=== PATIENT | female | born 1945 | race Caucasian/White ===

== ENCOUNTER 2016-09-14 05:37 | Inpatient (IN) ==
[2016-09-05 14:20] LABS: Basophils # 0.1 10*3/uL (0.0-0.2); Basophils % 0.4 % (0.0-0.8); Eosinophils # 0.4 10*3/uL (0.0-0.87); Eosinophils % 2.7 % (0.00-10.9); Hematocrit 40.1 VOL% (35.7-47.0); Hemoglobin 13.3 GM/DL (12.0-16.0); Immature Granulocytes % 0.4 %; Immature Granulocytes Absolute 0.05 #; Lymphocytes # 1.9 10*3/uL (1.4-4.0); Lymphocytes % 14.4 % (21.3-54.2); Mean Corpuscular HGB Conc 33.2 GM/DL (32-36); Mean Corpuscular Hemoglobin 29 PG (27-34); Mean Corpuscular Volume 87.9 FL (87-102); Mean Platelet Volume 13.3 FL (9.6-12.0); Monocytes # 0.6 10*3/uL (0.11-0.8); Monocytes % 4.8 % (1.7-12.7); Neutrophils # 10.3 10*3/uL (1.4-7.4); Neutrophils % 77.3 % (38.7-73.9); Platelet Count 171 T/CUMM (130-400); Red Blood Count 4.56 MC/CUMM (3.8-5.5); Red Cell Distribution Width 13.6 % (9.3-17.3); White Blood Count 13.4 T/CUMM (4-12)
[2016-09-05 14:30] LABS: Apearance,Urine Slightly Hazy (Clear); Blood, Urine Negative (Negative); Glucose,Urine (UA) Negative (Negative); Hyaline Casts,Urine 15 /LPF (0-3); Ketones,Urine 5 mg/dL (Negative); Nitrite,Urine Negative (Negative); Protein,Urine 30 MG/DL; RBC,Urine 2 /HPF (0-4); Squamous Epithelial Cell,Urine Occasional /HPF (0-10); Urine Color Amber (Yellow); Urine Specific Gravity 1.031 (1.001-1.035); WBC,Urine 5 /HPF (0-6)
[2016-09-05 14:33] LABS: Bilirubin,Urine Small mg/dL (Negative)
[2016-09-05 14:41] LABS: PT Patient Result 10.6 SECS; Partial Thromboplastin Time 27.9 SECS (0-40)
[2016-09-05 14:44] LABS: Albumin 3.3 G/DL (3.4-5.0); Bilirubin,Total 0.5 MG/DL (0.2-1.0); Calcium 9.6 MG/DL (8.5-10.1); Osmolality,Calculated 292.8 MOS/KG (273-304); Potassium 3.5 MMOL/L (3.5-5.1); Total Protein 6.3 G/DL (6.4-8.3)
--- NOTE | 2016-09-05 14:50 | XRay Report ---
XR chest 2V Indication: Preop evaluation Comparison: Chest x-ray dated June 22, 2016 Technique: Frontal and lateral views of the chest Findings: Mild cardiomegaly. Chronic change of the lungs without focal consolidation, pleural effusion, or pneumothorax. Osseous and surrounding soft tissue structures appear grossly unchanged. Osteopenia with accentuation of normal thoracic kyphosis. IMPRESSION: Stable chest x-ray. Mild cardiomegaly without cristopher pulmonary edema. PROCEDURE INTERPRETED AT [facility] [place] DEPARTMENT OF RADIOLOGY Final Report Signed by: Dr David Cameron
--- NOTE | 2016-09-05 14:53 | EKG Report ---
Stationary ECG Study [facility] Test Date: 09/05/2016 2:53:32 PM Pat Name: JENIFFER TAVERA Department: Room: Gender: F Position Classifier: DAVID 09-14-16 : 1945 Requested by: Butch Hines Order Number: [id number] Reading MD: CARL BURRIS Intervals [place] Rate: 55 P: 48 IA: 188 QRS: 42 QRSD: 113 T: -52 QT: 448 QTc: 437 Interpretive Statements SINUS RHYTHM MODERATE INTRAVENTRICULAR CONDUCTION DELAY MODERATE T-WAVE ABNORMALITY, CONSIDER LATERAL ISCHEMIA MODERATE T-WAVE ABNORMALITY, CONSIDER INFERIOR ISCHEMIA Electronically Signed On 09-09-16 21:48:13 CDT by CARL BURRIS [email or web address]
--- NOTE | 2016-09-14 06:52 | History and Physical Update ---
History and Physical Update - History and Physical H&P was reviewed, the patient examined and there: are no changes in the patients condition since last H&P was completed. - Dictation Physical: refer to scanned H&P
[2016-09-14] MEDS ORDERED: ALBUTEROL 2.5 MG/3 ML NEB RESP TX ONE (07:35)
[2016-09-14] MEDS ORDERED: DIAZEPAM 5 MG TABLET PO ONE (07:35)
[2016-09-14] MEDS ORDERED: PANTOPRAZOLE 40 MG TABLET PO ONE ×2 (07:35→08:14)
[2016-09-14] MEDS ORDERED: VANCOMYCIN INJ 1,000 MG in SODIUM CHLORIDE 0.9% 250 ML IV ONE (08:00)
[2016-09-14] MEDS ORDERED: LACTATED RINGERS 1,000 ML IV SCH (08:00)
[2016-09-14] MEDS ORDERED: VANCOMYCIN 1,000 MG VIAL ONE (08:14)
[2016-09-14] MEDS ORDERED: SODIUM CHLORIDE 0.9% 100 ML IV ONE (08:14)
[2016-09-14] MEDS ORDERED: ceFAZolin 1,000 MG VIAL ONE (08:14)
[2016-09-14] MEDS ORDERED: DIAZEPAM 5 MG TABLET ONE (08:14)
[2016-09-14] MEDS ORDERED: EPINEPHrine 1 MG/ML VIAL ONE (09:25)
[2016-09-14] MEDS ORDERED: methylPREDNISolone SOD SUC 125 MG/2 ML VIAL ONE (09:25)
[2016-09-14] MEDS ORDERED: MORPHINE 10 MG/1 ML VIAL ONE (09:25)
[2016-09-14] MEDS ORDERED: BUPIVACAINE 0.5% 50 ML VIAL ONE (09:25)
[2016-09-14] MEDS ORDERED: LIDOCAINE 2% 5 ML VIAL ONE (09:55)
[2016-09-14] MEDS ORDERED: PROPOFOL 200 MG/20 ML VIAL IV ONE (09:55)
[2016-09-14] MEDS ORDERED: TRANEXAMIC ACID 1,000 MG/10 ML VIAL IV ONE (11:05)
[2016-09-14] MEDS ORDERED: MORPHINE 10 MG/10 ML VIAL ONE (11:30)
[2016-09-14] MEDS ORDERED: MIDAZOLAM 2 MG/2 ML VIAL ONE (11:30)
[2016-09-14] MEDS ORDERED: KETAMINE 500 MG/10 ML VIAL ONE (11:30)
[2016-09-14] MEDS ORDERED: CETIRIZINE 10 MG TABLET PO PRN (12:20)
[2016-09-14] MEDS ORDERED: diphenhydrAMINE CAP 25 MG CAPSULE PO PRN (12:21)
[2016-09-14] MEDS ORDERED: ONDANSETRON 4 MG/2 ML VIAL IV PRN (12:21)
[2016-09-14] MEDS ORDERED: MAGNESIUM HYDROXIDE SUSP 30 ML UDCUP PO PRN (12:21)
[2016-09-14] MEDS ORDERED: oxyCODONE/ACETAMINOPHEN 5-325 MG TABLET PO PRN (12:21)
[2016-09-14 12:28] LABS: Apearance,Urine CLEAR (Clear); Bacteria,Urine Occasional /HPF (Few); Bilirubin,Urine Negative (Negative); Blood, Urine Negative (Negative); Glucose,Urine (UA) Negative (Negative); Ketones,Urine Negative (Negative); Nitrite,Urine Negative (Negative); Protein,Urine Negative; RBC,Urine <1 /HPF (0-4); Squamous Epithelial Cell,Urine Occasional /HPF (0-10); Urine Color Yellow (Yellow); Urine Specific Gravity 1.012 (1.001-1.035); Urine Urobilinogen < 2.0 EU/DL (0.2-1.0); WBC,Urine <1 /HPF (0-6)
[2016-09-14] MEDS ORDERED: hydrOXYzine HCL 25 MG TABLET PO PRN (12:30)
--- NOTE | 2016-09-14 12:47 | Anesthesia Post-Op ---
Anesthesia Post OP - Post Ansesthetic Evaluation Patient seen in post op: Yes Resp: within normal limits CV: within normal limits Mental: within normal limits Temp: within normal limits Hddl-[id number]-Gvefkronz: within normal limits Nausea and Vomiting: within normal limits Pain: within normal limits
--- NOTE | 2016-09-14 13:46 | XRay Report ---
Exam: XR hip OR RT Date: 09/14/2016 12:00 AM Comparison: None Indication: Right hip replacement Technique:[Fluoroscopy time 36.5 seconds documented. 2 films were submitted for review. AP films of the right hip were obtained.] Findings: Satisfactory right total hip replacement. Impression: Satisfactory right total hip replacement. PROCEDURE INTERPRETED AT [facility] DEPARTMENT OF RADIOLOGY Final Report Signed by: Dr. Yahaira Garcia
--- NOTE | 2016-09-14 13:48 | XRay Report ---
Exam: XR hip 1V RT Date: 09/14/2016 12:22 PM Comparison: 09/14/2016 Indication: Single view right hip Technique:[AP right hip Findings: Recent satisfactory right total hip replacement with postoperative findings. Deformity of the lateral superior acetabulum.] Possible old healed pubic bone fractures. Impression: Recent right total hip replacement with the prosthesis in satisfactory position. Deformity of the lateral superior acetabulum which makes it difficult to exclude a fracture in this location. Probable old healed pubic bone fractures. PROCEDURE INTERPRETED AT [facility] DEPARTMENT OF RADIOLOGY Final Report Signed by: Dr. Yahaira Garcia
--- NOTE | 2016-09-14 15:05 | Cardiology Progress Note ---
Cardiology - PN: Subj Interval history: Cardiology consult 71-year-old woman with degenerative right hip arthritis with progressive pain and immobility that failed to respond to physical/medical therapy. Today she underwent right hip replacement Dr. Hines. Alert and responsive. Blood pressure is 136/76 Pulse is 84 and regular O2 sat 95% Regular rhythm no gallop Decreased breath sounds but clear. No wheezing. Abdomen soft benign. No leg edema EKG shows sinus rhythm with preserved airways and ST-T wave changes. Impression status post right hip replacement today Active smoker Stable CAD. Cardiac cath June 07, 2016 showed occluded right coronary with rxnc-er-hojdh collaterals, patent LAD, 40% ostial circumflex with EF 55% and inferoapical hypokinesis Chronic hypertension Hyperlipidemia Status post right mastectomy for breast cancer History of depression, on Celexa 20 mg daily Plan EKG in a.m. Routine postop care and labs Analgesics as needed Subcu Lovenox Exam (Progress Note) - Constitutional Vitals: Period Temp Pulse Resp BP Sys/Steiner Pulse Ox Last 24 Hr 97.0 F-98.0 F 45-57 14-20 86-160/51-70 92-100 Result/EKG - Labs CBC & BMP: 09/05/16 13:53 09/05/16 13:53 Labs: Laboratory Results - last 24 hr 09/14/16 09/14/16 06:21 12:22 Urine Color Yellow Urine Appearance Clear Urine pH 7.0 Ur Specific [place] 1.012 Urine Protein Negative Urine Glucose (UA) Negative Urine Ketones Negative Urine Blood Negative Urine Nitrate Negative Urine Bilirubin Negative Urine Urobilinogen < 2.0 H Urine Leukocytes Negative Urine RBC <1 Urine WBC <1 Ur Squamous Epith Cells Occasional Urine Bacteria Occasional Ur Culture Indicated? Not indicated Blood Type O POSITIVE Antibody Screen Negative
[2016-09-14] MEDS: KETOROLAC 15 MG/1 ML VIAL IV SCH ×2 (15:21→20:53)
--- NOTE | 2016-09-14 15:23 | Orthopedic Progress Note ---
Assessment and Plan (1) Status post total hip replacement, right Status: Acute Assessment and plan: Routine postop antibiotics DVT prophylaxis Out of bed with therapy today Discharge planning, patient desires swing bed or rehab Current Visit: Yes Orthopedics - Subjective Interval history: Patient status post hip arthroplasty, her pain is controlled. She desires to get out of bed with therapy today. On exam her dressings clean and dry, she is neurovascularly intact. Exam - Constitutional Vitals: Period Temp Pulse Resp BP Sys/Steiner Pulse Ox Last 24 Hr 97.0 F-98.0 F 45-57 14-20 86-160/51-70 92-100 Results - Labs CBC & BMP: 09/05/16 13:53 09/05/16 13:53
[2016-09-14] MEDS ORDERED: TUBERCULIN SKIN TEST 0.1 ML SYRINGE INTRADERM ONE (16:26)
--- NOTE | 2016-09-14 16:29 | Case Mgmt Physician Query Form ---
TB Signs and Symptoms Screening ([place]) INSTRUCTIONS: To be completed annually on residents/staff with a significant Tuberculin Skin Test (TST) upon admission/hire or a prior significant TST. To be completed on all staff at hire. Please respond to each listed symptom with an (X) in either the "YES" or "NO" box. Do you currently have any of the following symptoms: YES NO ( ) ( x) A cough If yes, is it: ( ) Productive ( ) Non- productive ( ) ( x) Hemoptysis (spitting up blood) ( ) ( x) Chest pains ( ) ( x) Weight Loss ( ) ( x) Fever ( ) ( x) Night Sweats ( ) ( x) Weakness ( ) ( x) Loss of Appetite ( ) ( x) Difficulty Breathing If you answered YES" to any of the above questions, how long have symptoms been present? Comments: If you have any questions, please contact me. Thank you, Ashley Jimenez RN, Office : [phone] Email : [email or web address]
[2016-09-14] MEDS: ceFAZolin 2,000 MG in PREMIX 1 EACH IV SCH (19:01)
[2016-09-14] MEDS: ACETAMINOPHEN 500 MG TABLET PO SCH ×2 (19:01→23:11)
[2016-09-14] MEDS: SODIUM CHLORIDE 0.9% 1,000 ML IV SCH ×2 (20:02→22:28)
[2016-09-14] MEDS: DOCUSATE SODIUM 100 MG CAPSULE PO SCH (20:53)
[2016-09-14] MEDS: OMEGA 3 ACID ETHYL ESTERS 1 GM CAPSULE PO SCH (20:53)
[2016-09-14] MEDS: CARVEDILOL 3.125 MG TABLET PO SCH (21:11)
[2016-09-15] MEDS: KETOROLAC 15 MG/1 ML VIAL IV SCH ×2 (01:01→10:03)
[2016-09-15] MEDS: ceFAZolin 2,000 MG in PREMIX 1 EACH IV SCH (01:03)
[2016-09-15 04:25] LABS: Basophils % 0.2 % (0.0-0.8); Eosinophils % 0.1 % (0.00-10.9); Hematocrit 35.6 VOL% (35.7-47.0); Hemoglobin 11.7 GM/DL (12.0-16.0); Immature Granulocytes % 0.5 %; Immature Granulocytes Absolute 0.07 #; Lymphocytes # 0.9 10*3/uL (1.4-4.0); Lymphocytes % 7.2 % (21.3-54.2); Mean Corpuscular HGB Conc 32.9 GM/DL (32-36); Mean Corpuscular Hemoglobin 29 PG (27-34); Mean Corpuscular Volume 87.5 FL (87-102); Mean Platelet Volume 13.3 FL (9.6-12.0); Monocytes # 0.6 10*3/uL (0.11-0.8); Monocytes % 4.6 % (1.7-12.7); Neutrophils # 11.5 10*3/uL (1.4-7.4); Neutrophils % 87.4 % (38.7-73.9); Platelet Count 189 T/CUMM (130-400); Red Blood Count 4.07 MC/CUMM (3.8-5.5); Red Cell Distribution Width 13.2 % (9.3-17.3); White Blood Count 13.1 T/CUMM (4-12)
[2016-09-15 05:31] LABS: Calcium 9.2 MG/DL (8.5-10.1); Potassium 4.3 MMOL/L (3.5-5.1)
[2016-09-15] MEDS: ACETAMINOPHEN 500 MG TABLET PO SCH ×2 (06:10→11:47)
[2016-09-15] MEDS: ENOXAPARIN 40 MG/0.4 ML SYRINGE SUBCUT SCH (06:11)
[2016-09-15] MEDS: LEVOTHYROXINE 100 MCG TABLET PO SCH (06:17)
--- NOTE | 2016-09-15 07:55 | Orthopedic Progress Note ---
Assessment and Plan (1) Status post total hip replacement, right Status: Acute Assessment and plan: DVT prophylaxis Out of bed with therapy Discharge to swing bed Saturday Current Visit: Yes Orthopedics - Subjective Interval history: Patient has no complaints this morning, pain is controlled. On exam her dressings clean and dry, she is neurovascularly intact. Exam - Constitutional Vitals: Period Temp Pulse Resp BP Sys/Steiner Pulse Ox Last 24 Hr 96.7 F-98.4 F 45-62 14-20 86-145/45-70 90-100 Results - Labs CBC & BMP: 09/15/16 03:00 09/15/16 03:00
--- NOTE | 2016-09-15 08:12 | EKG Report ---
Stationary ECG Study [facility] Test Date: 09/15/2016 8:12:30 AM Pat Name: JENIFFER TAVERA Department: Room: 322 Gender: F [employer]pper: : 1945 Requested by: Mitesh Clemons Order Number: [id number] Reading MD: JUANIS MACDONALD Intervals [place] Rate: 57 P: -13 MN: 187 QRS: 32 QRSD: 119 T: -85 QT: 429 QTc: 423 Interpretive Statements SINUS RHYTHM PROBABLE INFERIOR MYOCARDIAL INFARCTION, OF INDETERMINATE AGE WITH POSTERIOR EXTENSION MODERATE T-WAVE ABNORMALITY, CONSIDER LATERAL ISCHEMIA Electronically Signed On 09-15-16 08:45:13 CDT by JUANIS MACDONALD [email or web address]
[2016-09-15] MEDS ORDERED: KETOROLAC 15 MG/1 ML VIAL IV ONE (09:30)
[2016-09-15] MEDS: DOCUSATE SODIUM 100 MG CAPSULE PO SCH ×2 (09:38→21:35)
[2016-09-15] MEDS: CITALOPRAM 20 MG TABLET PO SCH (09:38)
[2016-09-15] MEDS: hydroCHLOROthiazide 25 MG TABLET PO SCH (09:44)
[2016-09-15] MEDS: ROSUVASTATIN 10 MG TABLET PO SCH (09:44)
[2016-09-15] MEDS: POTASSIUM CHLORIDE 20 MEQ TABLET PO SCH (09:45)
[2016-09-15] MEDS: CARVEDILOL 3.125 MG TABLET PO SCH ×2 (09:45→21:36)
[2016-09-15] MEDS: OMEGA 3 ACID ETHYL ESTERS 1 GM CAPSULE PO SCH ×2 (09:45→21:36)
[2016-09-15] MEDS: LISINOPRIL 20 MG TABLET PO SCH (09:45)
--- NOTE | 2016-09-15 10:23 | Cardiology Progress Note ---
Cardiology - PN: Subj Interval history: Cardiology note Postop day #1 right hip replacement No temperature O2 sat 95% 2 L Blood pressure 126/56 Regular rhythm no gallop Decreased breath sounds but clear. No wheezing Abdomen benign No leg edema Lab data White count 13.1 hemoglobin 11.7 hematocrit 35.6 Sodium 143 potassium 4.3 chloride 106 CO2 29 BUN 31 creatinine 1.20 Glucose 126 Impression Status post right hip replacement Stable CAD cardiac cath June 07, 2016 showed occluded right coronary with oebl-tl-geaif collaterals, patent LAD, 40% ostial circumflex with EF 55% Chronic hypertension Hyperlipidemia Status post right mastectomy breast CA History depression on Celexa 20 mg daily Tobacco abuse Plan Routine postop care Analgesics as needed Lovenox Exam (Progress Note) - Constitutional Vitals: Period Temp Pulse Resp BP Sys/Steiner Pulse Ox Last 24 Hr 96.7 F-98.4 F 45-62 14-20 86-145/45-70 90-100 Result/EKG - Labs CBC & BMP: 09/15/16 03:00 09/15/16 03:00 Labs: Laboratory Results - last 24 hr 09/14/16 09/15/16 09/15/16 12:22 03:00 03:00 WBC 13.1 H RBC 4.07 Hgb 11.7 L Hct 35.6 L MCV 87.5 MCH 29 MCHC 32.9 RDW 13.2 Plt Count 189 MPV 13.3 H Neut % (Auto) 87.4 H Lymph % (Auto) 7.2 L [place] % (Auto) 4.6 Eos % (Auto) 0.1 Baso % (Auto) 0.2 Neut # (Auto) 11.5 H Lymph # (Auto) 0.9 L [place] # (Auto) 0.6 Eos # (Auto) 0.0 Baso # (Auto) 0.0 Immature Gran % 0.5 Nucleated RBC % 0.0 Immature Gran # 0.07 Nucleated RBCs # 0.00 Sodium 143 Potassium 4.3 Chloride 106 Carbon Dioxide 29 Anion Gap 12.3 BUN 31 H Creatinine 1.20 H GFR Calculation 46 BUN/Creatinine Ratio 25.00 H Glucose 126 H Calculated Osmolality 293.0 Calcium 9.2 Urine Color Yellow Urine Appearance Clear Urine pH 7.0 Ur Specific [place] 1.012 Urine Protein Negative Urine Glucose (UA) Negative Urine Ketones Negative Urine Blood Negative Urine Nitrate Negative Urine Bilirubin Negative Urine Urobilinogen < 2.0 H Urine Leukocytes Negative Urine RBC <1 Urine WBC <1 Ur Squamous Epith Cells Occasional Urine Bacteria Occasional Ur Culture Indicated? Not indicated
[2016-09-15] MEDS ORDERED: ACETAMINOPHEN 325 MG TABLET PO PRN (12:21)
[2016-09-15] MEDS: oxyCODONE/ACETAMINOPHEN 5-325 MG TABLET PO PRN ×2 (17:42→22:59)
[2016-09-15] MEDS: TEMAZEPAM 7.5 MG CAPSULE PO PRN (21:38)
[2016-09-16] MEDS: oxyCODONE/ACETAMINOPHEN 5-325 MG TABLET PO PRN ×5 (02:30→21:48)
[2016-09-16 04:34] LABS: Basophils % 0.3 % (0.0-0.8); Eosinophils # 0.3 10*3/uL (0.0-0.87); Eosinophils % 2.2 % (0.00-10.9); Hemoglobin 10.2 GM/DL (12.0-16.0); Immature Granulocytes % 0.5 %; Immature Granulocytes Absolute 0.06 #; Lymphocytes # 1.9 10*3/uL (1.4-4.0); Lymphocytes % 14.7 % (21.3-54.2); Mean Corpuscular HGB Conc 32.9 GM/DL (32-36); Mean Corpuscular Hemoglobin 29 PG (27-34); Mean Corpuscular Volume 87.6 FL (87-102); Mean Platelet Volume 13.5 FL (9.6-12.0); Monocytes % 7.7 % (1.7-12.7); Neutrophils # 9.5 10*3/uL (1.4-7.4); Neutrophils % 74.6 % (38.7-73.9); Platelet Count 159 T/CUMM (130-400); Red Blood Count 3.54 MC/CUMM (3.8-5.5); Red Cell Distribution Width 13.4 % (9.3-17.3); White Blood Count 12.7 T/CUMM (4-12)
[2016-09-16] MEDS: ENOXAPARIN 40 MG/0.4 ML SYRINGE SUBCUT SCH (06:05)
[2016-09-16] MEDS: LEVOTHYROXINE 100 MCG TABLET PO SCH (06:05)
[2016-09-16] MEDS: CITALOPRAM 20 MG TABLET PO SCH (09:27)
[2016-09-16] MEDS: DOCUSATE SODIUM 100 MG CAPSULE PO SCH ×2 (09:27→21:46)
[2016-09-16] MEDS: ROSUVASTATIN 10 MG TABLET PO SCH (09:28)
[2016-09-16] MEDS: hydroCHLOROthiazide 25 MG TABLET PO SCH (09:28)
[2016-09-16] MEDS: CARVEDILOL 3.125 MG TABLET PO SCH ×2 (09:28→21:46)
[2016-09-16] MEDS: POTASSIUM CHLORIDE 20 MEQ TABLET PO SCH (09:29)
[2016-09-16] MEDS: LISINOPRIL 20 MG TABLET PO SCH (09:29)
[2016-09-16] MEDS: OMEGA 3 ACID ETHYL ESTERS 1 GM CAPSULE PO SCH ×2 (09:29→21:46)
--- NOTE | 2016-09-16 09:54 | Orthopedic Progress Note ---
Assessment and Plan (1) Status post total hip replacement, right Status: Acute Assessment and plan: DVT prophylaxis Out of bed with therapy Discharge to swing bed tomorrow Current Visit: Yes Orthopedics - Subjective Interval history: No new complaints. Pain is controlled with oral meds. Patient ambulated in the hallway with therapy today. On exam her dressings clean dry, she is neurovascularly intact. The Exam - Constitutional Vitals: Period Temp Pulse Resp BP Sys/Steiner Pulse Ox Last 24 Hr 96.6 F-98.7 F 52-61 17-20 123-151/58-74 96-98 Results - Labs CBC & BMP: 09/16/16 03:37 09/15/16 03:00
--- NOTE | 2016-09-16 14:09 | Cardiology Progress Note ---
Cardiology - PN: Subj Interval history: Cardiology note Postop day #1 right hip replacement No temperature Good appetite Blood pressure 136/74 Regular rhythm no gallop Decreased breath sounds but no rhonchi or wheezing Abdomen benign No leg edema Impression Status post right hip replacement Stable CAD. Cardiac cath June 07, 2016 showed occluded right coronary with tavj-lz-aaceg collaterals, patent LAD and 40% ostial circumflex EF 55% Chronic hypertension Hyperlipidemia Status post right mastectomy breast CA Active smoker History of depression on Celexa Plan Physical therapy Lovenox Probable swing bed tomorrow Exam (Progress Note) - Constitutional Vitals: Period Temp Pulse Resp BP Sys/Steiner Pulse Ox Last 24 Hr 96.6 F-98.7 F 52-61 17-20 114-151/58-80 95-98 Result/EKG - Labs CBC & BMP: 09/16/16 03:37 09/15/16 03:00 Labs: Laboratory Results - last 24 hr 09/16/16 03:37 WBC 12.7 H RBC 3.54 L Hgb 10.2 L Hct 31.0 L MCV 87.6 MCH 29 MCHC 32.9 RDW 13.4 Plt Count 159 MPV 13.5 H Neut % (Auto) 74.6 H Lymph % (Auto) 14.7 L [place] % (Auto) 7.7 Eos % (Auto) 2.2 Baso % (Auto) 0.3 Neut # (Auto) 9.5 H Lymph # (Auto) 1.9 [place] # (Auto) 1.0 H Eos # (Auto) 0.3 Baso # (Auto) 0.0 Immature Gran % 0.5 Nucleated RBC % 0.0 Immature Gran # 0.06 Nucleated RBCs # 0.00
[2016-09-16] MEDS: TEMAZEPAM 7.5 MG CAPSULE PO PRN (21:50)
[2016-09-17] MEDS: oxyCODONE/ACETAMINOPHEN 5-325 MG TABLET PO PRN ×2 (02:13→06:06)
[2016-09-17 03:00] LABS: Basophils # 0.1 10*3/uL (0.0-0.2); Basophils % 0.5 % (0.0-0.8); Eosinophils # 0.5 10*3/uL (0.0-0.87); Eosinophils % 4.2 % (0.00-10.9); Hematocrit 30.3 VOL% (35.7-47.0); Hemoglobin 10.1 GM/DL (12.0-16.0); Immature Granulocytes % 0.4 %; Immature Granulocytes Absolute 0.05 #; Lymphocytes % 26.3 % (21.3-54.2); Mean Corpuscular HGB Conc 33.3 GM/DL (32-36); Mean Corpuscular Hemoglobin 29 PG (27-34); Mean Corpuscular Volume 88.1 FL (87-102); Mean Platelet Volume 13.2 FL (9.6-12.0); Monocytes # 0.9 10*3/uL (0.11-0.8); Monocytes % 7.7 % (1.7-12.7); Neutrophils # 6.9 10*3/uL (1.4-7.4); Neutrophils % 60.9 % (38.7-73.9); Platelet Count 169 T/CUMM (130-400); Red Blood Count 3.44 MC/CUMM (3.8-5.5); Red Cell Distribution Width 13.5 % (9.3-17.3); White Blood Count 11.3 T/CUMM (4-12)
[2016-09-17] MEDS: ENOXAPARIN 40 MG/0.4 ML SYRINGE SUBCUT SCH (06:06)
[2016-09-17] MEDS: LEVOTHYROXINE 100 MCG TABLET PO SCH (06:06)
[2016-09-17] MEDS: CARVEDILOL 3.125 MG TABLET PO SCH (08:22)
[2016-09-17] MEDS: LISINOPRIL 20 MG TABLET PO SCH (08:26)
--- NOTE | 2016-09-17 08:41 | Orthopedic Progress Note ---
Assessment and Plan (1) Status post total hip replacement, right Status: Acute Assessment and plan: DVT prophylaxis Out of bed with therapy twice daily Discharge to swing bed when bed is available Current Visit: Yes Orthopedics - Subjective Interval history: No new complaints, pain is controlled. On exam her dressings clean and dry, she is neurovascularly intact. Exam - Constitutional Vitals: Period Temp Pulse Resp BP Sys/Steiner Pulse Ox Last 24 Hr 97.0 F-98.5 F 52-63 16-20 101-159/46-80 95-98 Results - Labs CBC & BMP: 09/17/16 02:33 09/15/16 03:00
--- NOTE | 2016-09-17 08:44 | Discharge Summary ---
Hospital Course - Hospital Course Hospital Course: 71-year-old female admitted hospital following total hip arthroplasty. Tolerated procedure well was transferred for stable condition postoperatively. She received routine antibiotic and thromboprophylaxis. She was seen by physical therapy. Due to her age and comorbidities, it is felt that she would benefit from a stay in swing bed. Once a bed was available, successfully discharged. Time of discharge her wounds clean and dry she was neurovascularly intact. Diagnosis - Discharge Diagnosis (1) Status post total hip replacement, right Status: Acute Discharge Plan - Discharge Data Disposition: Swing Bed, Hos Based, [place] Condition at Discharge: Stable Discharge Diet: advance to your usual diet Activity: ambulate only with your walker Hygiene: may shower Weight Bearing at Discharge: weight bear as tolerated Driving: not until seen by doctor Contact your physician if you experience:: fever over 101, Difficulty voiding, Redness or swelling, Nausea/Vomiting, Shortness of breath, Bleeding, pain uncontrolled by pain medications Wound / Dressing Care Instructions: daily dressing change. Keep skin around incision dry, particularly under pannus. OK to shower. No tub soaks. lainey out 09/28/2016 - Discharge Medications New Aspirin EC Tab 325 mg PO DAILY #30 tablet oxyCODONE/ACETAMINOPHEN 5-325 [Percocet 5-325] 1 - 2 tablet PO Q4H PRN #60 tablet PRN Reason: Pain Moderate (4-7) Acetaminophen Tab [Tylenol Tab] 650 mg PO Q6H PRN #0 tablet PRN Reason: Pain Mild (1-3) Docusate Sodium Cap [Colace Cap] 100 mg PO BID capsule Continue hydroCHLOROthiazide [Hydrochlorothiazide] 50 mg PO DAILY Rosuvastatin [Crestor] 10 mg PO DAILY Potassium Chloride [Klor-Con M20] 20 meq PO DAILY [place]-3 Acid Ethyl Esters 2 gm PO BID Levothyroxine Tab [Synthroid Tab] 100 mcg PO DAILY@0700 Carvedilol 3.125 mg PO BID Oxycodone HCl/Acetaminophen [Oxycodone-Acetaminophen 10-325] 1 each PO Q6HR PRN PRN Reason: Pain hydrOXYzine HCl [Hydroxyzine HCl] 25 mg PO DIRECTED Lisinopril 40 mg PO DAILY Citalopram [CeleXA] 20 mg PO DAILY Cetirizine Tab [ZyrTEC Tab] 10 mg PO DAILY PRN PRN Reason: Allergy Symptoms Discontinued Aspirin [Ecotrin] 81 mg PO DAILY - Follow Up or Referral Follow Up: Butch Hines MD [Physician] - (2-3 weeks) - Forms/Instructions Exam - Constitutional Vitals: Period Temp Pulse Resp BP Sys/Steiner Pulse Ox Last 24 Hr 97.0 F-98.5 F 52-63 16-20 101-159/46-80 95-98 Discharge Results Labs on day of discharge: Labs from last 24 hours 09/17/16 02:33 WBC 11.3 RBC 3.44 L Hgb 10.1 L Hct 30.3 L MCV 88.1 MCH 29 MCHC 33.3 RDW 13.5 Plt Count 169 MPV 13.2 H Neut % (Auto) 60.9 Lymph % (Auto) 26.3 [place] % (Auto) 7.7 Eos % (Auto) 4.2 Baso % (Auto) 0.5 Neut # (Auto) 6.9 Lymph # (Auto) 3.0 [place] # (Auto) 0.9 H Eos # (Auto) 0.5 Baso # (Auto) 0.1 Immature Gran % 0.4 Nucleated RBC % 0.0 Immature Gran # 0.05 Nucleated RBCs # 0.00 DS: Provider Date of admission: 09/14/16 05:37 Primary care physician: Wendie Brown MD Attending physician on admission: Butch Hines MD Consults: 09/14/16 12:21 Consult to Case Mgmt/Social Srvs [CONS] Routine Reason for Case Mgmt/Social Srvs: Rehab Home Health Equipment Consult Comment: Bedside Commode, CPM, Walker Consult to Occupational Therapy [CONS] Routine Reason for Occupational Therapy: Evaluate and Treat Consult Comment: ADL's Consult to Physical Therapy [CONS] Routine Reason for Physical Therapy: Evaluate and Treat Gait Training Start Therapy: Tomorrow 09/14/16 12:22 Consult to Physician [CONS] Routine Comment: Consulting Provider: Mitesh Clemons Consulting Provider Notified: Yes When should Consulting Provider be notified: Now Person Notified: amparo mo Date Notified: 09/14/16 Time Notified: 11:35 Discharging clinician: Butch Hines MD
[2016-09-17] MEDS: CITALOPRAM 20 MG TABLET PO SCH (09:49)
[2016-09-17] MEDS: hydroCHLOROthiazide 25 MG TABLET PO SCH (09:49)
[2016-09-17] MEDS: ROSUVASTATIN 10 MG TABLET PO SCH (09:49)
[2016-09-17] MEDS: OMEGA 3 ACID ETHYL ESTERS 1 GM CAPSULE PO SCH (09:49)
[2016-09-17] MEDS: POTASSIUM CHLORIDE 20 MEQ TABLET PO SCH (09:50)
[2016-09-17] MEDS: DOCUSATE SODIUM 100 MG CAPSULE PO SCH (09:50)
[2016-09-17 12:01] VITALS: BP 129/62
== END 2016-09-17 12:30 | disposition swing bed (61) | DRG 470 ==
LOC: N.SDSINP 05:37 → N.3E 13:27
PROVIDERS: ADMIT Orthopaedic Surgery; ATTEND Orthopaedic Surgery